=== PATIENT | female | born 1965 | race Two or more races ===

== ENCOUNTER → 2025-07-13 | Outpatient (CLI) | payer MEDICAID, SELFPAY ==
--- NOTE | 2025-07-13 15:00 | XR_ITS ---
Examination: Abdomen sonogram, complete Date and time of exam: July 13, 2025, 14 2000 hours INDICATIONS: Left-sided abdominal pain 1 year. Technique: Multiple real-time grayscale transabdominal sonographic images of the abdomen have been obtained. Findings: Absent gallbladder Normal common bile duct 0.4 cm Pancreatic head 2.2 cm Aorta not enlarged. Liver 16.7 cm irregular contour 18 mm liver cyst Normal hepatopetal portal venous flow Patent IVC Right kidney 9.3 cm renal cortex 1.5 cm 14 mm cyst Left kidney 9.7 cm renal cortex 1.6 cm Midpole cyst 4.1 cm lower pole calculus 8 mm Mild scar formation Spleen 8.2 cm IMPRESSION: Cirrhosis, fatty infiltration, no solid liver lesions 8 mm lower pole nonobstructing left renal calculus
== END | disposition home or self-care (01) ==
PROVIDERS: PCP Specialist; Referring Provider Specialist; Visit Provider Specialist
DX: K74.60 Unspecified cirrhosis of liver (principal); K76.0 Fatty (change of) liver, not elsewhere classified; N20.0 Calculus of kidney
CPT/HCPCS: 76700